=== PATIENT | female | born 2000 | race Two or more races ===

== ENCOUNTER 2021-02-28 11:07 | Inpatient (IN) | payer SELFPAY ==
[~2021-02-28] VITALS: Ht 165.1 cm; Wt 82.0 kg
[2021-02-28 11:30] VITALS: BP 115/71
[2021-02-28] MEDS ORDERED: IV RINGERS,LACTATED 1000ML 1,000 ML IV SCH ×2 (11:45→14:15)
[2021-02-28 12:04] LABS: BILIRUBIN,URINE NEGATIVE (NEG); CLARITY,URINE CLEAR; COLOR,URINE YELLOW
[2021-02-28 12:05] LABS: NITRITE,URINE NEGATIVE (NEG); PH,URINE 7.5 (<5.0-8.0); PROTEIN,URINE NEGATIVE (NEG-TRACE); UROBILINOGEN,URINE 0.2 mg/dL (0.2 mg/dL)
[2021-02-28 12:08] LABS: AMNIO PT NEGATIVE
[2021-02-28 12:17] LABS: BACTERIA,URINE FEW /HPF (0-FEW)
[2021-02-28 12:18] LABS: RBC,URINE 0 /HPF (0-2)
[2021-02-28 14:13] LABS: BASO % 0 % (0-3); EOS % 0 % (0-3); HEMATOCRIT 35.5 % (36.0-47.0); HEMOGLOBIN 12.2 g/dL (12.0-15.5); LYMPH # 1.4 x10^3/uL (1.0-4.8); LYMPH % 11 % (24-48); MEAN CORPUSCULAR HEMOGLOBIN 33 pg (25-35); MEAN CORPUSCULAR HGB CONC 34 g/dL (31-37); MEAN CORPUSCULAR VOLUME 95 fL (79-100); MONO # 0.7 x10^3/uL (0.0-1.1); MONO % 6 % (0-9); NEUT % 83 % (31-73); PLATELET COUNT 210 x10^3/uL (140-400); RED BLOOD COUNT 3.75 x10^6/uL (3.50-5.40); RED CELL DISTRIBUTION WIDTH 13.5 % (11.5-14.5); WHITE BLOOD COUNT 13.3 x10^3/uL (4.0-11.0)
[2021-02-28] MEDS ORDERED: OXYTOCIN 30 UNIT/500 ML PREMIX 500 ML IV PRN ×2 (14:15)
[2021-02-28] MEDS ORDERED: LIDOCAINE 1% PF 30 ML VIAL. INJ PRN (14:15)
[2021-02-28] MEDS ORDERED: BUTORPHANOL 2 MG/ML VIAL. IVP PRN ×2 (14:15)
[2021-02-28] MEDS ORDERED: TERBUTALINE 1 MG/ML VIAL. SQ PRN (14:15)
[2021-02-28] MEDS ORDERED: 0.9 % SODIUM CHLORIDE 10 ML DISP.SYRIN. IV PRN (14:15)
--- NOTE | 2021-02-28 15:17 | PDOC1 ---
[facility] H&P Date of Admission: Date of Admission: Feb 28, 2021 at 11:07 History of Present Illness: 20 yr old at 42w 6 d by LMP vs 40 w 6 days by 29 weeks ultrasound. She presented in labor changing from 4 cm to 6 cm. her ROM plus was neg. Bulging bag present. Her records are available and reviewed A pos/neg ab screen, HIV/hep b/rpr: neg rec'd tdap Past Medical History: Cardiovascular: No pertinent hx Pulmonary: No pertinent hx GI: No pertinent hx Heme/Onc: No pertinent hx Hepatobiliary: No pertinent hx Psych: No pertinent hx Rheumatologic: No pertinent hx Infectious disease: No pertinent hx ENT: No pertinent hx Renal/: No pertinent hx Endocrine: No pertinent hx Past Surgical History: No pertinent history Social History: Smoke: No ALCOHOL: none Drugs: None Medications: Meds: Current Medications Medications (Trade) Dose Ordered Sig/Nory Route PRN Reason Start Time Stop Time Status Last Admin Dose Admin Ringer's Solution 1,000 ml @ 125 mls/hr Q8H IV 02/28/21 11:45 02/28/21 13:18 Butorphanol Tartrate (Stadol) 1 mg PRN Q1HR PRN IVP mild to moderate labor pain 02/28/21 14:15 02/28/21 14:40 Allergies: Coded Allergies: No Known Drug Allergies (Unverified , 02/28/21) Physical Exam: Vital Signs: Vital Signs Date Time Temp Pulse Resp B/P (MAP) Pulse Ox O2 Delivery O2 Flow Rate FiO2 02/28/21 14:40 18 Room Air 02/28/21 11:30 98.3 93 115/71 (86) 98.3 PE: GENERAL: appears uncomfortable with contractions No distress. Alert and oriented. HEENT: Head normocephalic, atraumatic. NECK: Supple LUNGS: Clear to auscultation. HEART: RRR, S1, S2 present, pulses intact ABDOMEN: Soft, positive bowel sounds. gravid fundus NT EXTREMITIES: No cyanosis or edema. NEUROLOGIC: Normal speech, normal tone PSYCHIATRIC: Normal affect, normal mood. SKIN: No ulceration. Pelvic Exam: External exam is normal and without rash, , uterus NTTP, cvx 6/100/-1 vertex AROM done with amniohook. Clear fluid. FHT's cat I Labs: Laboratory Tests Test 02/28/21 11:40 02/28/21 11:43 02/28/21 12:05 Urine Collection Type Unknown Urine Color Yellow Urine Clarity Clear Urine pH 7.5 (<5.0-8.0) Urine Specific [place] 1.010 (1.000-1.030) Urine Protein Negative mg/dL (NEG-TRACE) Urine Glucose (UA) Negative mg/dL (NEG) Urine Ketones (Stick) Negative mg/dL (NEG) Urine Blood Negative (NEG) Urine Nitrite Negative (NEG) Urine Bilirubin Negative (NEG) Urine Urobilinogen Dipstick 0.2 mg/dL (0.2 mg/dL) Urine Leukocyte Esterase Moderate (NEG) Urine RBC 0 /HPF (0-2) Urine WBC 11-20 /HPF (0-4) Urine Squamous Epithelial Cells Many /LPF Urine Bacteria Few /HPF (0-FEW) Amniotic Fluid Swab Test Negative White Blood Count 13.3 x10^3/uL (4.0-11.0) H Red Blood Count 3.75 x10^6/uL (3.50-5.40) Hemoglobin 12.2 g/dL (12.0-15.5) Hematocrit 35.5 % (36.0-47.0) L Mean Corpuscular Volume 95 fL (79-100) Mean Corpuscular Hemoglobin 33 pg (25-35) Mean Corpuscular Hemoglobin Concent 34 g/dL (31-37) Red Cell Distribution Width 13.5 % (11.5-14.5) Platelet Count 210 x10^3/uL (140-400) Neutrophils (%) (Auto) 83 % (31-73) H Lymphocytes (%) (Auto) 11 % (24-48) L Monocytes (%) (Auto) 6 % (0-9) Eosinophils (%) (Auto) 0 % (0-3) Basophils (%) (Auto) 0 % (0-3) Neutrophils # (Auto) 11.0 x10^3/uL (1.8-7.7) H Lymphocytes # (Auto) 1.4 x10^3/uL (1.0-4.8) Monocytes # (Auto) 0.7 x10^3/uL (0.0-1.1) Eosinophils # (Auto) 0.0 x10^3/uL (0.0-0.7) Basophils # (Auto) 0.0 x10^3/uL (0.0-0.2) Treponema pallidum Antibody Nonreactive (Nonreactive) Laboratory Tests 02/28/21 12:05 Laboratory Tests 02/28/21 12:05 Assessment & Plan: A: 20 yr at 40-42 weeks. late care gbs neg taiwanese speaking P: Admit for active labor Amniotomy done. anticipate vaginal delivery SRAVANI WONG MD Feb 28, 2021 15:17
[2021-02-28] MEDS ORDERED: OXYTOCIN PREMIX 30 UNIT/500 ML NS BAG. IV ONE (16:00)
[2021-02-28] MEDS ORDERED: MINERAL OIL 30 ML for ORAL USE. PO ONE (16:15)
--- NOTE | 2021-02-28 16:31 | PDOC4 ---
VAGINAL DELIVERY DATE DATE: 02/28/21 TIME: 16:14 TIME 16:14 : 2 Para: 2 VAGINAL DELIVERY: VTX VACCUM ASSISTED: No PLACENTA: Spontaneous 8/9 SEX: Female (" Karlee") WEIGHT Weight [not weighed yet ] Nuchal Cord: Yes, Times 1, Loose Amniotic Fluid: Clear PAIN: Natural EPISIOTOMY: No EXTENSION: No EBL 300 cc COMPLICATIONS none CONDITION stable Signs of Intrauterine Infectio: None Shoulder Dystocia: No DIAGNOSIS Late care. date discrepancy of LMP EDC (42+ weeks vs 29 week sono EDC 40.6 weeks Problems: (1) Late care, antepartum (2) Size of fetus inconsistent with dates in third trimester SRAVANI WONG MD Feb 28, 2021 16:31
[2021-02-28] MEDS ORDERED: MAGNESIUM HYDROXIDE 2,400 MG/30 ML ORAL.SUSP. PO PRN (16:45)
[2021-02-28] MEDS ORDERED: ZOLPIDEM 5 MG TABLET. PO PRN (16:45)
[2021-02-28] MEDS ORDERED: DOCUSATE SODIUM 100 MG CAPSULE. PO PRN (16:45)
[2021-02-28] MEDS ORDERED: HYDROCORTISONE 1% TOPICAL OINTMENT 30GM TUBE. TP PRN (16:45)
[2021-02-28] MEDS ORDERED: MAG HYDROX/ALUMINUM HYD/SIMETH 30 ML ORAL.SUSP PO PRN (16:45)
[2021-02-28] MEDS ORDERED: PHENYLEPH/MINERAL OIL/PETROLAT RECTAL OINTMENT TUBE. RC PRN (16:45)
[2021-02-28] MEDS ORDERED: diphenhydrAMINE HCL 25 MG CAPSULE PO PRN (16:45)
[2021-02-28] MEDS ORDERED: SIMETHICONE 80 MG TAB.CHEW PO PRN (16:45)
[2021-02-28] MEDS ORDERED: ACETAMINOPHEN 325 MG TABLET. PO PRN ×2 (16:45)
[2021-02-28] MEDS ORDERED: BENZOCAINE 20% TOPICAL AEROSOL SPRAY 57GM CAN. TP PRN (16:45)
[2021-02-28] MEDS: IBUPROFEN 400 MG TABLET. PO PRN (18:13)
[2021-02-28 18:30] VITALS: BP 106/63
[2021-02-28 22:52] VITALS: BP 115/60
[2021-03-01 01:58] VITALS: BP 100/56
[2021-03-01] MEDS: IBUPROFEN 400 MG TABLET. PO PRN ×3 (05:09→19:47)
[2021-03-01 05:45] VITALS: BP 99/55
[2021-03-01 07:35] VITALS: BP 113/77
[2021-03-01] MEDS: MULTIVITAMIN with MINERAL TABLET. PO SCH (08:28)
[2021-03-01] MEDS: oxyCODONE IR 5 MG TABLET PO PRN ×2 (08:30→16:14)
--- NOTE | 2021-03-01 10:57 | PDOC ---
CONTROL SYSTEMS ENG PROGRESS NOTE Date of Service: DATE: 03/01/21 TIME: 10:52 Subjective: PPD 1 She has had some cramping and passed a few small clots when up to the bathroom. SHe is . The baby has spit up quite a bit, Objective: Vital Signs: Vital Signs Date Time Temp Pulse Resp B/P (MAP) Pulse Ox O2 Delivery O2 Flow Rate FiO2 02/28/21 11:30 98.3 93 18 115/71 (86) Room Air 98.3 03/01/21 05:45 100 Vital Signs Date Time Temp Pulse Resp B/P (MAP) Pulse Ox O2 Delivery O2 Flow Rate FiO2 03/01/21 08:30 20 Room Air 03/01/21 07:35 98.6 76 113/77 (89) 98 98.6 Labs: Laboratory Tests Test 02/28/21 11:40 02/28/21 11:43 02/28/21 12:05 02/28/21 14:45 Urine Collection Type Unknown Urine Color Yellow Urine Clarity Clear Urine pH 7.5 (<5.0-8.0) Urine Specific [place] 1.010 (1.000-1.030) Urine Protein Negative mg/dL (NEG-TRACE) Urine Glucose (UA) Negative mg/dL (NEG) Urine Ketones (Stick) Negative mg/dL (NEG) Urine Blood Negative (NEG) Urine Nitrite Negative (NEG) Urine Bilirubin Negative (NEG) Urine Urobilinogen Dipstick 0.2 mg/dL (0.2 mg/dL) Urine Leukocyte Esterase Moderate (NEG) Urine RBC 0 /HPF (0-2) Urine WBC 11-20 /HPF (0-4) Urine Squamous Epithelial Cells Many /LPF Urine Bacteria Few /HPF (0-FEW) Amniotic Fluid Swab Test Negative White Blood Count 13.3 x10^3/uL (4.0-11.0) H Red Blood Count 3.75 x10^6/uL (3.50-5.40) Hemoglobin 12.2 g/dL (12.0-15.5) Hematocrit 35.5 % (36.0-47.0) L Mean Corpuscular Volume 95 fL (79-100) Mean Corpuscular Hemoglobin 33 pg (25-35) Mean Corpuscular Hemoglobin Concent 34 g/dL (31-37) Red Cell Distribution Width 13.5 % (11.5-14.5) Platelet Count 210 x10^3/uL (140-400) Neutrophils (%) (Auto) 83 % (31-73) H Lymphocytes (%) (Auto) 11 % (24-48) L Monocytes (%) (Auto) 6 % (0-9) Eosinophils (%) (Auto) 0 % (0-3) Basophils (%) (Auto) 0 % (0-3) Neutrophils # (Auto) 11.0 x10^3/uL (1.8-7.7) H Lymphocytes # (Auto) 1.4 x10^3/uL (1.0-4.8) Monocytes # (Auto) 0.7 x10^3/uL (0.0-1.1) Eosinophils # (Auto) 0.0 x10^3/uL (0.0-0.7) Basophils # (Auto) 0.0 x10^3/uL (0.0-0.2) Treponema pallidum Antibody Nonreactive (Nonreactive) SARS-CoV-2 RNA (DORINA) Negative (Negative) SARS-CoV-2 Antigen (Rapid) Negative (NEGATIVE) Test 03/01/21 08:35 Hematocrit 29.6 % (36.0-47.0) L Laboratory Tests 02/28/21 12:05 03/01/21 08:35 Laboratory Tests 02/28/21 12:05 03/01/21 08:35 Physical Exam: GENERAL: No apparent distress. Alert and oriented. HEENT: Head normocephalic, atraumatic. NECK: Supple LUNGS: unlabored breathing HEART: ABDOMEN: Soft, positive bowel sounds. fundus is firm and NT EXTREMITIES: No cyanosis or edema. NEUROLOGIC: Normal speech, normal tone PSYCHIATRIC: Normal affect, normal mood. SKIN: No ulceration. Vag pad scant lochia currently Assessment & Plan: Laboratory Tests Test 02/28/21 11:40 02/28/21 11:43 02/28/21 12:05 02/28/21 14:45 Urine Collection Type Unknown Urine Color Yellow Urine Clarity Clear Urine pH 7.5 (<5.0-8.0) Urine Specific [place] 1.010 (1.000-1.030) Urine Protein Negative mg/dL (NEG-TRACE) Urine Glucose (UA) Negative mg/dL (NEG) Urine Ketones (Stick) Negative mg/dL (NEG) Urine Blood Negative (NEG) Urine Nitrite Negative (NEG) Urine Bilirubin Negative (NEG) Urine Urobilinogen Dipstick 0.2 mg/dL (0.2 mg/dL) Urine Leukocyte Esterase Moderate (NEG) Urine RBC 0 /HPF (0-2) Urine WBC 11-20 /HPF (0-4) Urine Squamous Epithelial Cells Many /LPF Urine Bacteria Few /HPF (0-FEW) Amniotic Fluid Swab Test Negative White Blood Count 13.3 x10^3/uL (4.0-11.0) Red Blood Count 3.75 x10^6/uL (3.50-5.40) Hemoglobin 12.2 g/dL (12.0-15.5) Hematocrit 35.5 % (36.0-47.0) Mean Corpuscular Volume 95 fL (79-100) Mean Corpuscular Hemoglobin 33 pg (25-35) Mean Corpuscular Hemoglobin Concent 34 g/dL (31-37) Red Cell Distribution Width 13.5 % (11.5-14.5) Platelet Count 210 x10^3/uL (140-400) Neutrophils (%) (Auto) 83 % (31-73) Lymphocytes (%) (Auto) 11 % (24-48) Monocytes (%) (Auto) 6 % (0-9) Eosinophils (%) (Auto) 0 % (0-3) Basophils (%) (Auto) 0 % (0-3) Neutrophils # (Auto) 11.0 x10^3/uL (1.8-7.7) Lymphocytes # (Auto) 1.4 x10^3/uL (1.0-4.8) Monocytes # (Auto) 0.7 x10^3/uL (0.0-1.1) Eosinophils # (Auto) 0.0 x10^3/uL (0.0-0.7) Basophils # (Auto) 0.0 x10^3/uL (0.0-0.2) Treponema pallidum Antibody Nonreactive (Nonreactive) SARS-CoV-2 RNA (DORINA) Negative (Negative) SARS-CoV-2 Antigen (Rapid) Negative (NEGATIVE) Test 03/01/21 08:35 Hematocrit 29.6 % (36.0-47.0) A: PPD 1 p: CONTINUE CURRENT PPCARE. NO IMMEDIATE CONCERNS, LIKELY DISCHARGE TOMORROW SRAVANI WONG MD Mar 01, 2021 10:57
[2021-03-01 12:30] VITALS: BP 108/58
[2021-03-01 16:22] VITALS: BP 95/56
[2021-03-01 19:45] VITALS: BP 105/62
[2021-03-02 05:43] VITALS: BP 114/76
[2021-03-02] MEDS: IBUPROFEN 400 MG TABLET. PO PRN (05:43)
[2021-03-02 09:15] VITALS: BP 103/60
[2021-03-02] MEDS: MULTIVITAMIN with MINERAL TABLET. PO SCH (09:19)
[2021-03-02 11:55] VITALS: BP 117/72
== END 2021-03-02 12:00 | disposition home or self-care (01) | DRG 807 ==
LOC: INTOOBSV 11:07 → OBSVTOIN 11:07 → UNDOADMOB 11:07 → 3 SO LND 11:07
PROVIDERS: ADMIT Obstetrics & Gynecology; ATTEND Obstetrics & Gynecology
PROC: 10E0XZZ Delivery of Products of Conception, External Approach (ICD-10-PCS; principal; 2021-02-28)
DX: O69.81X0 Labor and delivery complicated by cord around neck, without compression, not applicable or unspecified (principal); Z37.0 Single live birth; Z3A.40 40 weeks gestation of pregnancy; Z20.822 Contact with and (suspected) exposure to COVID-19
CPT/HCPCS: 36415; 81001; 84112; 85014; 85025; 86592; 86850; 86900; 86901; 87086; 87426; G0378; J0595; J2590; J7120; U0003; U0005